=== PATIENT | female | born 1930 | race Hispanic/Latino ===

== ENCOUNTER 2017-07-15 18:35 | Emergency (ER) | payer MEDICARE ==
[2017-07-15 19:17] VITALS: RESP 18
--- NOTE | 2017-07-15 20:28 | C.PDOC ---
History Of Present Illness A 87 year old female, who denies any significant past medical history, is brought into the emergency department via EMS who states "the patient was found wandering the street by the bus stop and appears confused, but in no apparent distress." The patient states she got lost and sometimes forgets. The patient reports she just wants to go home. She denies any trauma, fever, or any other complaints at this time. Time Seen by Provider: 07/15/17 18:55 Chief Complaint (Nursing): Medical Clearance Past Medical History Vital Signs: Last Vital Signs Temp 97.9 F 07/15/17 20:52 Pulse 83 07/15/17 20:52 Resp 18 07/15/17 20:52 BP 140/77 07/15/17 20:52 Pulse Ox 97 07/15/17 21:06 Family History: States: Unknown Family Hx - Social History Hx Alcohol Use: No Hx Substance Use: No - Immunization History Hx Tetanus Toxoid Vaccination: No (UNKNOWN) Hx Influenza Vaccination: No (UNKNOWN) Hx Pneumococcal Vaccination: No (UNKNOWN) Review Of Systems Except As Marked, All Systems Reviewed And Found Negative. Constitutional: Negative for: Fever Cardiovascular: Negative for: Chest Pain Physical Exam - Physical Exam Appears: Well, No Acute Distress Skin: Normal Color, Warm, Dry Head: Atraumatic, Normacephalic Eye(s): bilateral: Normal Inspection, PERRL, EOMI Nose: Normal Oral Mucosa: Moist Throat: Normal Neck: Normal, Supple Cardiovascular: Rhythm Regular, No Friction Rub, No Murmur Respiratory: Normal Breath Sounds, No Rhonchi, No Wheezing Gastrointestinal/Abdominal: Normal Exam, No Tenderness Back: Normal Inspection Extremity: Normal ROM Neurological/Psych: Normal Speech, Normal Motor, Normal Sensation, Other ( Oriented to person and time. ) Gait: Steady ED Course And Treatment O2 Sat by Pulse Oximetry: 97 (on RA) Pulse Ox Interpretation: Normal Medical Decision Making Medical Decision Making: The family was contacted and her daughter Mirian is now at bedside. 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 Disposition - Disposition Referrals: [facility] [Outside] Disposition: HOME/ ROUTINE Disposition Time: 21:05 Condition: GOOD Additional Instructions: Follow up with the medical doctor within 1-2 days. Return if worsened. Instructions: Dementia (ED) Forms: [employer] (Belarusian) - Clinical Impression Clinical Impression: Medical assessment, Gets lost in familiar location - Scribe Statement The provider has reviewed the documentation as recorded by the Scribe Nasra Phan All medical record entries made by the Scribe were at my direction and personally dictated by me. I have reviewed the chart and agree that the record accurately reflects my personal performance of the history, physical exam, medical decision making, and the department course for this patient. I have also personally directed, reviewed, and agree with the discharge instructions and disposition.
[2017-07-15 20:52] VITALS: BP 140/77; PULSE 83; TEMP 97.9
[2017-07-15 21:06] VITALS: O2SAT 97
== END 2017-07-15 19:45 | disposition home or self-care (01) ==
LOC: C.ER 18:35
DX: F03.90 Unspecified dementia, unspecified severity, without behavioral disturbance, psychotic disturbance, mood disturbance, and anxiety (principal); Z91.83 Wandering in diseases classified elsewhere